=== PATIENT | male | born 1940 | race Caucasian/White ===

== ENCOUNTER 2017-12-09 07:24 | Outpatient (CLI) | payer OTHER ==
[~2017-12-09 07:24] MED LIST: ATORVASTATIN CA10 MG; COZAAR100 MG; GABAPENTIN300 MG; GLIMEPIRIDE2 MG; GLUCOPHAGE XR750 MG
== END 2017-12-09 08:46 | disposition home or self-care (01) ==
LOC: NUCLEAR 07:24
DX: I20.0 Unstable angina (principal); E78.2 Mixed hyperlipidemia; E11.8 Type 2 diabetes mellitus with unspecified complications
CPT/HCPCS: 78452; 93017; A9500

== ENCOUNTER 2022-01-01 13:49 | Emergency (ER) | payer OTHER ==
[~2022-01-01] VITALS: Ht 170.2 cm; Wt 84.8 kg
[2022-01-01] MEDS ORDERED: FARXIGA10 MG PO (14:16)
[2022-01-01] MEDS ORDERED: VALTREX1000 MG PO (17:28)
[2022-01-01] MEDS ORDERED: NAPR500T14 PO (17:28)
== END 2022-01-01 17:50 | disposition home or self-care (01) ==
LOC: ER 13:49
DX: A03.9 Shigellosis, unspecified (principal); E78.00 Pure hypercholesterolemia, unspecified; I10 Essential (primary) hypertension; E11.9 Type 2 diabetes mellitus without complications; Z79.84 Long term (current) use of oral hypoglycemic drugs; Z85.9 Personal history of malignant neoplasm, unspecified; B02.23 Postherpetic polyneuropathy

== ENCOUNTER 2025-04-14 09:05 | Outpatient (CLI) | payer OTHER ==
[~2025-04-14 09:05] MED LIST changes: +FARXIGA10 MG PO; +NAPR500T14 PO; +VALTREX1000 MG PO
== END 2025-04-14 09:21 | disposition home or self-care (01) ==
LOC: MRI 09:05
PROVIDERS: ATTEND Internal Medicine
DX: S36.2 Injury of pancreas (principal)
CPT/HCPCS: 74182; Q9965